=== PATIENT | male | born 1950 | race Caucasian/White ===

== ENCOUNTER 2018-11-22 12:53 | Day surgery (SDC) | payer OTHER ==
[~2018-11-22] VITALS: Ht 185.4 cm; Wt 72.0 kg
[2018-11-22 14:07] VITALS: Ht 185.4 cm; Wt 72.0 kg
[2018-11-22] MEDS ORDERED: NAPROXEN (14:12)
[2018-11-22] MEDS ORDERED: INHALER FOR ASTHMA (14:13)
[2018-11-22] MEDS ORDERED: [UNRECOGNIZED DRUG - REMARK] (14:14)
[2018-11-22] MEDS ORDERED: PROSTATE MED (14:14)
--- NOTE | 2018-11-22 14:14 | PREAC ---
Date/Time of Note Date/Time of Note DATE: 11/22/18 TIME: 14:12 Anesthesia Eval and Record Evaluation Time Pre-Procedure Interview DATE: 11/22/18 TIME: 14:12 Age 68 Sex male NPO: 8 hrs Preoperative diagnosis screening Planned procedure colonoscopy Past Medical History Past Medical History: Includes Pulm: Asthma Recreational drugs: Marijuana Surgery & Anesthesia Issues No known issue Meds Anticoagulation: No Beta Abimael within 24 hr: No Reason Beta Abimael not given: Pt. not on B-Abimael Reported Medications [Vitamins] No Conflict Check 11/22/18 [Valium] No Conflict Check 11/22/18 [Galopin For Sleep] No Conflict Check 11/22/18 [Prostate Med] No Conflict Check 11/22/18 [Inhaler For Asthma] No Conflict Check 11/22/18 [Naproxen] No Conflict Check 11/22/18 Meds reviewed: Yes Allergies Coded Allergies: No Known Allergy (Unverified , 11/22/18) Allergies Reviewed: Yes Labs/Studies Labs Reviewed: Other (labs not taken) test: N/A Pre-procedure Exam Airway: Adequate mouth opening Mallampati: Mallampati I Teeth: Normal Lung: Normal Heart: Normal ASA Physical Status ASA physical status: 2 Emergency: None Planned Anesthetic General/MAC: MAC Pre-operative Attestations Prior to commencing anesthesia and surgery, the patient was re-evaluated, there was verification of: *The patient's identity *The results of appropriate recent lab work and preoperative vital signs *The above evaluation not changing prior to induction *Anesthetic plan, risk benefits, alternative and complications discussed with patient/family; questions answered; patient/family understands, accepts and wishes to proceed. FARHEEN NASH Nov 22, 2018 14:14
[2018-11-22] MEDS ORDERED: VITAMINS (14:15)
[2018-11-22] MEDS ORDERED: VALIUM (14:15)
[2018-11-22 14:16] VITALS: BP 129/82; PULSE 56; RESP 9
[2018-11-22] MEDS ORDERED: LIDOCAINE 2% (SDV) 5 ML INJ ONE (14:46)
[2018-11-22] MEDS ORDERED: PROPOFOL 60 ML ONE (14:46)
[2018-11-22 15:39] VITALS: BP 117/79; RESP 15
== END 2018-11-22 17:12 | disposition home or self-care (01) ==
LOC: GIL 12:53
PROVIDERS: ATTEND Internal Medicine Gastroenterology
DX: Z12.11 Encounter for screening for malignant neoplasm of colon (principal); K64.8 Other hemorrhoids; K57.30 Diverticulosis of large intestine without perforation or abscess without bleeding